=== PATIENT | male | born 1975 | race Two or more races ===

== ENCOUNTER 2025-03-01 10:11 | Emergency (ER) | payer OTHER ==
[~2025-03-01] VITALS: Ht 172.7 cm; Wt 74.8 kg
[2025-03-01 10:19] VITALS: BP 105/65; TEMP 98.6
[2025-03-01 10:47] VITALS: O2SAT 99
== END 2025-03-01 10:48 | disposition home or self-care (01) ==
LOC: ER 10:18
DX: T16.2XXA Foreign body in left ear, initial encounter (principal); W44.F9XA Other object of natural or organic material, entering into or through a natural orifice, initial encounter; Y93.89 Activity, other specified; Y92.89 Other specified places as the place of occurrence of the external cause; Y99.8 Other external cause status